=== PATIENT | male | born 1945 | race Caucasian/White ===

== ENCOUNTER 2021-08-05 15:51 | Outpatient (CLI) | payer MEDICARE, SELFPAY ==
--- NOTE | ~2021-08-05 | MR_ITS ---
EXAMINATION: MR knee LT wo con DATE: 08/05/2021 16:42 INDICATION: Left knee pain. TECHNIQUE: Magnetic resonance imaging (MRI) of the left knee was performed without intravenous contra st. Sequences included axial PD-weighted FS FSE, coronal PD-weighted FSE and PD-weighted FS FSE, sagi ttal PD-weighted FSE, and sagittal T2-weighted FS FSE. COMPARISON: None. FINDINGS: Medial compartment: There is a complex tear involving body and posterior horn of medial meniscus. There is extensive full -thickness cartilage loss of femoral condyle with mild subchondral edema-like marrow signal intensity . There is full-thickness cartilage loss of tibial condyle involving the central and medial articular surface with mild subchondral edema-like marrow signal intensity. Osteophytes are noted. Lateral compartment: There is a complex tear of lateral meniscus involving the body and posterior root. There is partial-t hickness cartilage loss of femoral condyle, deep at the posterior and central articular surface. Ther e is partial-thickness cartilage loss of tibial condyle, deep at the medial articular surface. Osteop hytes are noted. Patellofemoral compartment: There is a nondisplaced stellate fracture of patella with involvement of the articular surface. There is partial-thickness cartilage loss of patella, deep distally. There is extensive deep partial thick ness cartilage loss of trochlea. Osteophytes are noted. Ligaments and tendons: Anterior cruciate ligament and posterior cruciate ligament are enlarged with increased signal intensi ty. There are changes of prior sprains of medial collateral ligament and fibular collateral ligament characterized by increased signal intensity proximally. There is moderate patellar tendinopathy. Fluid: There is a large lipohemarthrosis of the knee joint. There is a large ruptured Tyler's cyst with loos e body. IMPRESSION: 1. Stellate fracture of patella. 2. Severe chondrosis of medial compartment and moderate chondrosis of lateral and patellofemoral comp artments. 3. Tears of medial and lateral menisci. 4. Large lipohemarthrosis of the knee. 5. Large ruptured Tyler's cyst with loose body. 6. Enlargement and increased signal involving anterior cruciate ligament and posterior cruciate ligam ent, which may be mucoid degeneration. Partial ligament tears cannot be excluded. Reviewed, dictated and finalized at location B. IMPRESSION: 1. Stellate fracture of patella. 2. Severe chondrosis of medial compartment and moderate chondrosis of lateral a nd patellofemoral compartments. 3. Tears of medial and lateral menisci. 4. Large lipohemarthrosis of the knee. 5. Large ruptured Tylre's cyst with loose body. 6. Enlargement and increased signal involving anterior cruciate ligament and po sterior cruciate ligament, which may be mucoid degeneration. Partial ligament t ears cannot be excluded.
== END 2021-08-05 15:52 | disposition home or self-care (01) ==
LOC: ANHIMG 15:53
DX: S82.035A Nondisplaced transverse fracture of left patella, initial encounter for closed fracture (principal); S83.242A Other tear of medial meniscus, current injury, left knee, initial encounter; S83.282A Other tear of lateral meniscus, current injury, left knee, initial encounter; X58.XXXA Exposure to other specified factors, initial encounter; M71.21 Synovial cyst of popliteal space [Baker], right knee
CPT/HCPCS: 73721